=== PATIENT | female | born 1990 | race Caucasian/White ===

== ENCOUNTER 2021-03-20 20:38 | Emergency (ER) | payer MEDICAID ==
[~2021-03-20] VITALS: Ht 167.6 cm; Wt 105.0 kg
[2021-03-20] MEDS ORDERED: ACETAMINOPHEN 325MG TABLET PO STA (22:54)
[2021-03-20 23:00] LABS: CLARITY URINE CLOUDY (CLEAR); COLOR URINE YELLOW (YELLOW); KETONES URINE NEGATIVE (NEGATIVE); LEUKOCYTE ESTERASE URINE 2+ (NEGATIVE); NITRITE URINE NEGATIVE (NEGATIVE); OCCULT BLOOD URINE 2+ (NEGATIVE); PH URINE 7.5 (4.5-8.0); PROTEIN URINE TRACE (NEGATIVE); SPECIFIC GRAVITY URINE 1.021 (1.005-1.030)
[2021-03-20] MEDS ORDERED: AMOX-424 PO (23:26)
[2021-03-20] MEDS ORDERED: SULF1TAB48 PO (23:26)
[2021-03-20] MEDS ORDERED: HYDR-4622 TP (23:26)
[2021-03-20] MEDS ORDERED: ACET-2708 PO (23:26)
[2021-03-20 23:40] VITALS: BP 130/62
== END 2021-03-20 23:45 | disposition home or self-care (01) ==
LOC: ER 20:38
DX: N39.0 Urinary tract infection, site not specified (principal); R59.0 Localized enlarged lymph nodes; S80.861A Insect bite (nonvenomous), right lower leg, initial encounter; W57.XXXA Bitten or stung by nonvenomous insect and other nonvenomous arthropods, initial encounter; Y93.9 Activity, unspecified; Y92.9 Unspecified place or not applicable
CPT/HCPCS: 81003; 81025; 99283

== ENCOUNTER 2023-12-11 06:16 | Emergency (ER) | payer MEDICAID ==
[~2023-12-11] VITALS: Ht 157.5 cm; Wt 91.0 kg
[~2023-12-11 06:16] MED LIST: ACET-2708 PO; AMOX-424 PO; HYDR-4622 TP; SULF1TAB48 PO
[2023-12-11 06:31] VITALS: O2SAT 97
[2023-12-11] MEDS ORDERED: ISOP30DR11 OT (08:21)
[2023-12-11 08:41] VITALS: BP 121/67; PULSE 84; RESP 17; TEMP 98.4
== END 2023-12-11 08:43 | disposition home or self-care (01) ==
LOC: ER 06:16
DX: S09.90XA Unspecified injury of head, initial encounter (principal); H61.21 Impacted cerumen, right ear; Y04.0XXA Assault by unarmed brawl or fight, initial encounter; Y93.89 Activity, other specified; Y92.89 Other specified places as the place of occurrence of the external cause; Y99.8 Other external cause status
CPT/HCPCS: 81025; 99284

== ENCOUNTER 2024-07-20 16:00 | Emergency (ER) | payer MEDICAID ==
[~2024-07-20] VITALS: Ht 157.5 cm; Wt 113.0 kg
[~2024-07-20 16:00] MED LIST changes: +ISOP30DR11 OT
[2024-07-20 16:07] VITALS: BP 125/87; PULSE 88; RESP 18; TEMP 98.1; O2SAT 99
[2024-07-20] MEDS ORDERED: MUPI15CR11 TP (20:20)
== END 2024-07-20 20:19 | disposition home or self-care (01) ==
LOC: ER 16:00
DX: L08.9 Local infection of the skin and subcutaneous tissue, unspecified (principal); B95.8 Unspecified staphylococcus as the cause of diseases classified elsewhere; W57.XXXA Bitten or stung by nonvenomous insect and other nonvenomous arthropods, initial encounter; Y93.89 Activity, other specified; Y92.89 Other specified places as the place of occurrence of the external cause; Y99.8 Other external cause status
CPT/HCPCS: 99283

== ENCOUNTER 2025-02-22 22:55 | Emergency (ER) | payer MEDICAID, OTHER ==
[~2025-02-22] VITALS: Ht 157.5 cm; Wt 114.0 kg
[~2025-02-22 22:55] MED LIST changes: +MUPI15CR11 TP
[2025-02-22 23:00] VITALS: O2SAT 98
[2025-02-22 23:20] VITALS: BP 137/83; PULSE 109; RESP 18; TEMP 36.8; O2SAT 98
[2025-02-23] MEDS ORDERED: SULF1TAB48 PO (00:05)
[2025-02-23] MEDS ORDERED: MUPI15CR11 TP (00:05)
== END 2025-02-23 00:11 | disposition home or self-care (01) ==
LOC: ER 22:55
DX: L03.311 Cellulitis of abdominal wall (principal); Z79.899 Other long term (current) drug therapy; Z98.890 Other specified postprocedural states
CPT/HCPCS: 99283